=== PATIENT | male | born 1970 | race Caucasian/White ===

== ENCOUNTER 2020-04-25 05:32 | Day surgery (SDC) | payer OTHER ==
[~2020-04-25 05:32] MED LIST: CLINDAMYCIN 600 MG/D5W RTU 600 MG/50 ML RTUPB IV ONE; CLINDAMYCIN 600 MG/D5W RTU 600 MG/50 ML RTUPB IV PRN; LACTATED RINGERS 1000 ML IV PRN; LIDOCAINE 0.5% INJ-PF (5 MG/ML) 50 ML SDV SUBCUT PRN
[2020-04-25] MEDS ORDERED: ONDANSETRON HCL INJ/PF 4 MG/2 ML SDV ONE (06:47)
[2020-04-25] MEDS ORDERED: FENTANYL CITRATE INJ/PF 100 MCG/2 ML AMPUL ONE ×2 (06:47→08:36)
[2020-04-25] MEDS ORDERED: PROPOFOL INJ 200 MG/20 ML VIAL IV ONE (06:47)
[2020-04-25] MEDS ORDERED: MIDAZOLAM 2 MG/2 ML INJ ONE (06:47)
[2020-04-25] MEDS ORDERED: DEXAMETHASONE SOD PHOSPHATE INJ 4 MG/1 ML VIAL ONE (06:47)
[2020-04-25] MEDS ORDERED: KETOROLAC TROMETHAMINE 60 MG/2 ML SDV ONE (06:49)
[2020-04-25] MEDS ORDERED: BUPIVACAINE INJ/PF LIPOSOME/PF 266 MG/20 ML SDV ONE (07:02)
[2020-04-25] MEDS ORDERED: DIPHENHYDRAMINE HCL 50 MG/ML VIAL IV PRN (07:54)
[2020-04-25] MEDS ORDERED: FENTANYL CITRATE INJ/PF 100 MCG/2 ML AMPUL IV PRN ×3 (07:54)
[2020-04-25] MEDS ORDERED: MORPHINE SULFATE 10 MG/ML INJ IV PRN (07:54)
[2020-04-25] MEDS ORDERED: MEPERIDINE HCL/PF INJ 25 MG/1 ML DISP.SYRIN IV PRN (07:54)
[2020-04-25] MEDS ORDERED: ONDANSETRON HCL INJ/PF 4 MG/2 ML SDV IV PRN (07:54)
--- NOTE | 2020-04-25 08:25 | Operative Report ---
Nonrecallable Operative Report DATE OF SURGERY: 04/25/20 PREOPERATIVE DIAGNOSIS: Umbilical hernia POSTOPERATIVE DIAGNOSIS: Same OPERATION: Repair umbilical hernia SURGEON: ANTHONY AGUIAR ANESTHESIA: GA TISSUE REMOVED OR ALTERED: None COMPLICATIONS: None ESTIMATED BLOOD LOSS: 5 cc INTRAOPERATIVE FINDINGS: See note PROCEDURE: Patient brought the operating awake alert stable condition placed on the operating table supine position induced under general anesthesia intubated. The abdomen was prepped and draped in usual sterile manner. After appropriate timeout and site verification the procedure commenced. An infra infraumbilical incision was made with a 15 blade just below the umbilicus and dissection was carried out through subcutaneous tissue with the knife and then with Bovie cautery. The umbilical stalk was then dissected out and encircled with an umbilical tape was then divided at its base on top of the anterior abdominal fascia. Care was taken not to injure any possibly incarcerated small bowel and there was none. There was some incarcerated preperitoneal fat in the umbilical stalk which was excised. Once the umbilical stalk was detached from the fascia the fascia was cleared underneath it for about 1/2 cm and then we placed a piece of Ventralex mesh 6.3 cm ho-chunk underneath the fascia and tacked it anteriorly with three 2-0 Vicryl. These were placed circumferentially between the fascia and the mesh. The fascia was then closed over the mesh with interrupted placed 0 Vicryl sutures. The umbilical stalk was then tacked back down onto the anterior abdominal fascia with 2-0 Vicryl. The subcutaneous tissue was reapproximated with interrupted 2- 0 Vicryl and the skin was reapproximated intracuticular 4 oh bison Steri-Strips completed the procedure. Estimated blood loss was less than 10 cc sponge needle counts correct x2. This patient was awakened in the operative extubated transferred recovery stable condition no complications.
[2020-04-25] MEDS ORDERED: HYDROCODONE/ACETAMINOPHEN 10-325 MG TABLET PO PRN (08:28)
[2020-04-25] MEDS ORDERED: LIDOCAINE 2% INJ (20 MG/ML) 20 ML MDV ONE (08:35)
[2020-04-25] MEDS ORDERED: HYDROCODONE/ACETAMINOPHEN 10-325 MG TABLET ONE (09:13)
[2020-04-25 11:09] VITALS: BP 113/76
[2020-04-25] MEDS ORDERED: SUCCINYLCHOLINE CHLORIDE INJ 200 MG/10 ML VIAL ONE (12:04)
[2020-04-25] MEDS ORDERED: ROCURONIUM BROMIDE INJ 50 MG/5 ML VIAL IV ONE (12:04)
== END 2020-04-25 10:40 | disposition home or self-care (01) ==
LOC: OROUT 05:32
PROVIDERS: ATTEND Surgery
DX: K42.0 Umbilical hernia with obstruction, without gangrene (principal); Z01.812 Encounter for preprocedural laboratory examination; Z20.828 Contact with and (suspected) exposure to other viral communicable diseases; J45.909 Unspecified asthma, uncomplicated; Z79.899 Other long term (current) drug therapy
CPT/HCPCS: 49587; U0003; J2250; J3490; J1100; J3010; J2405; J2704; C9290; C9803; 87635; C1781; J0330; J1885